=== PATIENT | female | born 1950 | race Caucasian/White ===

== ENCOUNTER → 2016-11-05 | Outpatient (CLI) | payer OTHER, BC | LOC: FIMAGING 15:09 | PROVIDERS: ATTEND Family Medicine | DX: Z12.31 Encounter for screening mammogram for malignant neoplasm of breast (principal); Z80.3 Family history of malignant neoplasm of breast; Z13.820 Encounter for screening for osteoporosis; M85.80 Other specified disorders of bone density and structure, unspecified site | CPT/HCPCS: G0202 ==

== ENCOUNTER → 2016-11-19 | Outpatient (CLI) | payer OTHER, BC | LOC: FIMAGING 14:20 | PROVIDERS: ATTEND Family Medicine | DX: Z12.39 Encounter for other screening for malignant neoplasm of breast (principal); R92.2 Inconclusive mammogram | CPT/HCPCS: 76641; G0206 ==

== ENCOUNTER → 2016-12-08 | Outpatient (CLI) | payer OTHER, BC ==
[~2016-12-08] MED LIST: THROMBIN (BOVINE) 5,000 UNIT VIAL TP ONE
[2016-12-14 14:57] LABS: ACCESSION # HR17-14234; INTERPRETATION See Comments
== END ==
LOC: FIMAGING 08:43
PROVIDERS: ATTEND Family Medicine
PROC: 0HBU3ZX Excision of Left Breast, Percutaneous Approach, Diagnostic (ICD-10-PCS; principal; 2016-12-08)
DX: C50.812 Malignant neoplasm of overlapping sites of left female breast (principal)
CPT/HCPCS: 19083; 88360; 88361; G0206

== ENCOUNTER → 2017-01-04 | Outpatient (CLI) | payer OTHER, BC | LOC: FIMAGING 07:19 | PROVIDERS: ATTEND Surgery | PROC: 3E0W3HZ Introduction of Radioactive Substance into Lymphatics, Percutaneous Approach (ICD-10-PCS; principal; 2017-01-04) | DX: C50.912 Malignant neoplasm of unspecified site of left female breast (principal) | CPT/HCPCS: 19281; 38792; 76098; A9520 ==

== ENCOUNTER 2017-07-22 14:11 | Emergency (ER) | payer OTHER, BC ==
--- NOTE | 2017-07-22 14:37 | EDPHY ---
H & P Time Seen by Provider: 07/22/17 14:28 HPI/ROS: CHIEF COMPLAINT: "My tailbone hurts " HISTORY OF PRESENT ILLNESS: 66-year-old female, no anticoagulant use, history of osteopenia, states that 3 days ago she was walking down carpeted stairs, slipped and landed hard on her buttock. She has been complaining of coccygeal pain ever since. No incontinence or retention. Straddle injury. No urinary abnormality. No melena hematochezia. No radiculopathy. No abdominal pain. No head injury. No Cervical trauma or discomfort. Pain relieved with oxycodone PRIMARY CARE PROVIDER: Dr. Nelida Velázquez REVIEW OF SYSTEMS: A ten point review of systems was performed and is negative with the exception of the items mentioned in the HPI PAST MEDICAL/SURGICAL HISTORY: no anticoagulant use, osteopenia SOCIAL HISTORY: PHYSICAL EXAM 1) GENERAL: Well-developed, well-nourished, alert and oriented. Answering questions appropriately. 2) HEAD: Normocephalic, atraumatic 3) HEENT: Pupils equal, round, reactive to light bilaterally. Negative Horners. Nasopharynx, oropharynx, clear. No deformity or angulation of nose. No septal hematoma. No rhinorrhea. No oral trauma. Ears bilaterally with normal tympanic membranes. No hemotympanum. No fluid or blood in the external auditory canal. No raccoon eyes. No Quiles sign. Teeth are normally aligned with no gross malocclusion, TMJ bilaterally nontender, facial bones nontender including the zygomatic arch, maxilla mandible. 4) NECK: No cervical collar is on. Posterior cervical spine is nontender, no stepoff, no effusion. Full range of motion which does not elicit any midline cervical spine pain, no posterior midline tenderness, no step-off. 5) LUNGS: Clear to auscultation bilaterally, no wheezes, no rhonchi, no retractions. No obvious signs of trauma. No chest wall pain. No flaring, no grunting. Moving symmetrically. No crepitus. 6) HEART: Regular rate and rhythm, 7) ABDOMEN: No guarding, no rebound, no focal tenderness, no peritoneal signs, no signs of trauma, no ecchymosis 8) MUSCULOSKELETAL: tender to palpation bilateral buttock the general location of her pubic rami . Patella Achilles reflexes intact to bilateral strength 5/ 5. Otherwise, Moving all extremities, no focal areas of tenderness, no obvious trauma. Compartments soft 9) BACK: Tender to palpation lower lumbar region midline , no palpable abnormality on pain. No effusion. No step-off. Tender to palpation sacrum midline. No midline vertebral tenderness, no fluctuance, no step-off, no obvious trauma, no visual or palpable abnormality. 10) SKIN: No laceration. No abrasion DIFFERENTIAL DIAGNOSIS:In no particular order, including but not limited to, fracture, sprain/strain, cauda equina, pubic ramus fracture. - Medical/Surgical History Hx Asthma: Yes Hx Chronic Respiratory Disease: No Hx Diabetes: No Hx Cardiac Disease: No Hx Renal Disease: No Hx Cirrhosis: No Hx Alcoholism: No Hx HIV/AIDS: No Hx Splenectomy or Spleen Trauma: No Other PMH: MIGRAINES. auto-immune disorder. sleep apnea - Social History Smoking Status: Never smoked Constitutional: Initial Vital Signs Temperature (C) 36.5 C 07/22/17 14:37 Heart Rate 69 07/22/17 14:37 Respiratory Rate 16 07/22/17 14:37 Blood Pressure 131/68 H 07/22/17 14:37 O2 Sat (%) 93 07/22/17 14:37 O2 Delivery Mode Room Air Allergies/Adverse Reactions: adhesive Allergy (Verified 07/22/17 14:33) adhesive tape Allergy (Verified 07/22/17 14:33) banana Allergy (Verified 04/30/16 11:49) latex Allergy (Verified 04/30/16 11:49) meperidine HCl [From Demerol] Allergy (Verified 04/30/16 11:49) Other-Enter Comments morphine Allergy (Verified 04/30/16 11:49) Anaphylaxis prochlorperazine [From Compazine] Allergy (Verified 07/22/17 14:41) PNEUMONIA VACCINE Allergy (Uncoded 04/30/16 11:49) Other-Enter Comments tape Allergy (Uncoded 07/22/17 14:33) Home Medications: Medication Instructions Recorded Gabapentin 04/30/16 Prozac 10 MG (*) 04/30/16 ALPRAZolam 07/22/17 Acetazolamide 07/22/17 Phenergan 07/22/17 Relpax 07/22/17 Triazolam 07/22/17 Welchol 07/22/17 oxyCODONE/APAP 5/325 [Percocet 1 tab PO Q6 PRN #10 tab 07/22/17 5/325 (*)] traMADol 07/22/17 Medical Decision Making - Diagnostics Imaging Results: Imaging Impressions Lumbar Spine X-Ray 07/22/17 14:34 Impression: 1. No acute osseous abnormality seen about the lumbar spine. 2. Facet hypertrophy lower lumbar spine along with mild disk space narrowing. Pelvis X-Ray 07/22/17 14:34 Impression: 1. Normal pelvis x-ray. 2. Normal sacrum and coccyx series. Sacrum and Coccyx X-Ray 07/22/17 14:34 Impression: 1. Normal pelvis x-ray. 2. Normal sacrum and coccyx series. Images reviewed myself ED Course/Re-evaluation: Care of patient under supervision of primary supervising physician Dr Kaiser . The patient was re-evaluated with serial examinations was recently at 3:19 p.m.. Discussed her imaging results interpreted by staff radiologist as negative for definitive fracture. Doubt compartment syndrome. At this time I do not think that further diagnostic studies are indicated. She has pain relief with oxycodone and requested prescription for similar. Plan will be discharge with oxycodone. Usual and customary orthopedic precautions and instructions provided. She feels comfortable being discharged. - Data Points Medications Given: Discontinued Medications Oxycodone/Acetaminophen (Percocet 5/325) 1 tab PO EDNOW ONE Stop: 07/22/17 14:50 Last Admin: 07/22/17 15:03 Dose: 1 tab Departure - Departure Disposition: Home, Routine, Self-Care Clinical Impression: Coccygeal pain Fall down stairs Qualifiers: Encounter type: initial encounter Qualified Code(s): W10.8XXA - Fall (on) (from ) other stairs and steps, initial encounter Low back pain Qualifiers: Chronicity: acute Back pain laterality: midline Sciatica presence: without sciatica Qualified Code(s): M54.5 - Low back pain Condition: Good Instructions: Acute Low Back Pain (ED) Additional Instructions: Seek medical attention if you develop new or worsening pain, if you develop bladder or bowel dysfunction, numbness around your perineum, foot drop, or any other symptoms that concern you. Referrals: Shyann Velázquez MD [Primary Care Provider] - 07/25/17 Prescriptions: oxyCODONE/APAP 325 [Percocet 325 (*)] 1 tab PO Q6 PRN #10 tab PRN Reason: Pain, Severe
[2017-07-22] MEDS ORDERED: OXYCODONE/APAP 5/325 TAB PO ONE (14:49)
[2017-07-22 15:45] VITALS: BP 132/68; PULSE 68; RESP 20; TEMP 98.1; O2SAT 94
== END 2017-07-22 15:47 | disposition home or self-care (01) ==
DX: S39.92XA Unspecified injury of lower back, initial encounter (principal); J45.909 Unspecified asthma, uncomplicated; Z91.040 Latex allergy status; W10.8XXA Fall (on) (from) other stairs and steps, initial encounter; Y93.01 Activity, walking, marching and hiking

== ENCOUNTER 2017-08-05 11:37 | Day surgery (SDC) | payer OTHER, BC ==
[~2017-08-05 11:37] MED LIST changes: +ALBUTEROL 3 ML DEYVIAL ONE; +LIDOCAINE 1% 300 MG/30 ML SDV ONE; +LIDOCAINE 2% JELLY 5 ML TUBE ONE; -THROMBIN (BOVINE) 5,000 UNIT VIAL TP ONE
[2017-08-05 12:11] VITALS: PULSE 64; TEMP 97.9
--- NOTE | 2017-08-05 12:59 | PDPROPOC ---
Sedation Plan of Care Sedation Plan of Care: vital signs stable, mental status noted, patient educated of risks, benefits, alternatives, patient can tolerate sedation ASA Classification: ASA 2 Planned drugs: fentanyl, midazolam Mallampati Score: Class 2 Mallampati Reference Image: Patient passed 3-3-2 rule?: Yes
[2017-08-05] MEDS ORDERED: fentaNYL 100 MCG/2 ML INJ ONE (13:04)
[2017-08-05] MEDS ORDERED: MIDAZOLAM 2 MG/2 ML VIAL ONE (13:04)
--- NOTE | 2017-08-05 13:20 | POSTOPPROG ---
Post Op Note Date of Operation: 08/05/17 Surgeon: Darien Pérez Anesthesia: IV Sedation Pre-op Diagnosis: cough Post-op Diagnosis: cough Procedure: bronchoscopy Findings: normal airways Inf/Abcess present in the surg proc area at time of surgery?: No
[2017-08-05] MEDS ORDERED: fentaNYL 100 MCG/2 ML INJ IVP ONE (13:21)
[2017-08-05] MEDS ORDERED: MIDAZOLAM 2 MG/2 ML VIAL IVP ONE (13:21)
--- NOTE | 2017-08-05 13:27 | BVPULMO ---
Formerly [facility] Surgical Services- Pulmonology Patient Name: Corinne Johnson Procedure Date: 08/05/2017 10:38 AM Patient Type: Outpatient Attending MD/ER Physician: Darien Pérez MD Procedure: Bronchoscopy Indications: Chronic cough Providers: Darien Pérez MD Medicines: Fentanyl 75 mcg IV, Midazolam 3 mg mg IV, Lidocaine 1% applied to cords 2 mL, Lidocaine 1% subglottic space 3 mL, Oxygen 6 L/min Complications: No immediate complications Procedure: After informed consent, a time out was performed. N95 masks were worn, and the procedure was done in a negative pressure room. The patient was given appropria te topical anesthesia and intravenous sedation. The fiberopic bronchoscope was pas sed via a bite block orally into the larynx and subsequently into the lower trachea bronchial tree. Throughout the procedure, the patient's blood pressure, pulse, and oxygen saturations were monitored continuously. The Bronchoscope (Video) was introduced through the mouth and advanced to the tracheobronchial tree of both lungs. The procedure was accomplished without difficulty. The patient tolerated the procedure well. The total duration of the procedure was 25 minutes. Findings: The oropharynx appears normal. The larynx appears normal. The vocal cords appea r normal. The subglottic space is normal. The trachea is of normal caliber. The c connie is sharp. The tracheobronchial tree was examined to at least the first subsegme ntal level. Bronchial mucosa and anatomy are normal; there are no endobronchial lesi ons, and no secretions. Post Op Diagnosis: - Chronic cough - The examination was normal. - No specimens collected. - The examination was normal. Estimated Blood Loss: Estimated blood loss: none. Recommendation: - Follow up with bronchoscopist in 1 month. Attending Participation: I personally performed the entire procedure. Darien Pérez MD Darien Pérez MD 08/05/2017 1:26:36 PM This report has been signed electronicallyThomas MD Beto Number of Addenda: 0 Note Initiated On: 08/05/2017 10:38 AM [email or web address]
[2017-08-05 14:15] VITALS: BP 118/74; RESP 29; O2SAT 93
== END 2017-08-05 14:15 | disposition home or self-care (01) ==
LOC: FSGY 11:37
PROVIDERS: ATTEND Internal Medicine Pulmonary Disease
PROC: 0BJ08ZZ Inspection of Tracheobronchial Tree, Via Natural or Artificial Opening Endoscopic (ICD-10-PCS; principal; 2017-08-05 13:00)
DX: R05 Cough (principal)
CPT/HCPCS: J0171; J2250; J3010

== ENCOUNTER → 2017-11-07 | Outpatient (CLI) | payer OTHER, BC | LOC: FIMAGING 07:56 | PROVIDERS: ATTEND Radiology Radiation Oncology | DX: Z12.31 Encounter for screening mammogram for malignant neoplasm of breast (principal); Z85.3 Personal history of malignant neoplasm of breast ==

== ENCOUNTER → 2017-11-23 | Outpatient (CLI) | payer OTHER, BC | LOC: FIMAGING 14:05 | PROVIDERS: ATTEND Internal Medicine Hematology & Oncology | DX: Z13.820 Encounter for screening for osteoporosis (principal); M85.89 Other specified disorders of bone density and structure, multiple sites; Z85.3 Personal history of malignant neoplasm of breast; Z78.0 Asymptomatic menopausal state ==

== ENCOUNTER → 2017-12-08 | Outpatient (CLI) | payer OTHER, BC | LOC: FIMAGING 12:17 | PROVIDERS: ATTEND Physician Assistant Surgical | DX: R93.8 Abnormal findings on diagnostic imaging of other specified body structures (principal); R10.2 Pelvic and perineal pain; R10.32 Left lower quadrant pain ==

== ENCOUNTER → 2018-06-06 | Outpatient (CLI) | payer OTHER, BC | LOC: FIMAGING 12:53 | PROVIDERS: ATTEND Physician Assistant Surgical | DX: R10.2 Pelvic and perineal pain (principal) | CPT/HCPCS: 82306-90 ==

== ENCOUNTER 2018-08-22 12:36 | Emergency (ER) | payer OTHER, BC ==
[2018-08-22 13:26] LABS: PLATELET COUNT 227 10^3/uL (150-400)
[2018-08-22] MEDS ORDERED: NS 1,000 ML IV ONE (13:32)
--- NOTE | 2018-08-22 13:40 | EDPHY ---
H & P Time Seen by Provider: 08/22/18 13:13 HPI/ROS: CHIEF COMPLAINT: Loss of vision, facial numbness, headache HISTORY OF PRESENT ILLNESS: This is a 67-year-old female with a history of fibromyalgia, migraine headaches, irritable bowel syndrome, and depression who presents after an episode of "loss of vision". Patient relates that she was laying on the couch this morning, she went to sit up and her visual field in both eyes suddenly went black. She states it felt like a curtain that came down. Lasted for only a few seconds and then the patient laid back down. She denies a feeling of tunnel vision, palpitations, lightheadedness, or dizziness. After a few moments she sat up again and once again lost the vision in both visual butler. She denies flashes of lights. She then developed a severe left retro-orbital headache. Patient laid back down again and waited for about 20 min. Her headache started to reside on its own and then she developed some numbness around the left eye and onto the left cheek. At no point did she actually have a syncopal episode. No chest pain. No shortness of breath. No recent nausea, vomiting, or diarrhea. No speech difficulties. No numbness or tingling present currently. No weakness. Patient has been otherwise well. REVIEW OF SYSTEMS: A comprehensive 10 system review of systems was reviewed and is otherwise negative aside from elements mentioned in the history of present illness and medical decision making. Patient does relate an issue with her Cymbalta dose where she inadvertently increased Cymbalta from 60 mg daily 220 mg daily. She was quite sedated over the weekend but the medication error was recognize yesterday and the patient reports back to her normal mentation today. PAST MEDICAL HISTORY: Fibromyalgia, irritable bowel, migraine headaches. No history of hypertension, diabetes, TIA, or stroke. SOCIAL HISTORY: Here with her . VITAL SIGNS Reviewed by me. GENERAL: Well-developed, well-nourished, resting comfortably in no respiratory distress. HEENT: Atraumatic. Eyes: No icterus, no injection. FLORINDA, EOMI. Discs are sharp bilaterally. Mouth: moist mucous membranes. No erythema or lesions. Neck: supple with no adenopathy. No meningismus. LUNGS: Clear to auscultation bilaterally, no wheezes, rhonchi or rales. CARDIAC: Regular rate and rhythm, no rubs, murmurs or gallops. ABDOMEN: Soft, nontender, nondistended, bowel sounds normal. BACK: No CVA tenderness. EXTREMITIES: No trauma. No edema. Range of motion is normal throughout. NEURO: Alert and oriented, cranial nerves 2-12 are intact. Motor strength 5/5 throughout. Sensation intact to light touch throughout including on the face. SKIN: Warm and dry, no rash. PSYCHIATRIC: Normal mentation, no agitation. Smoking Status: Never smoked Constitutional: Initial Vital Signs Temperature (C) 36.6 C 08/22/18 12:42 Heart Rate 67 08/22/18 12:42 Respiratory Rate 18 08/22/18 12:42 O2 Sat (%) 95 08/22/18 12:42 O2 Delivery Mode Room Air Allergies/Adverse Reactions: adhesive Allergy (Verified 08/22/18 12:44) adhesive tape Allergy (Verified 08/22/18 12:44) banana Allergy (Verified 08/22/18 12:44) latex Allergy (Verified 08/22/18 12:44) meperidine HCl [From Demerol] Allergy (Verified 08/22/18 12:44) Other-Enter Comments morphine Allergy (Verified 08/22/18 12:44) Anaphylaxis prochlorperazine [From Compazine] Allergy (Verified 08/22/18 12:44) Other-Enter Comments PNEUMONIA VACCINE Allergy (Uncoded 08/22/18 12:44) Other-Enter Comments tape Allergy (Uncoded 08/22/18 12:44) Home Medications: Medication Instructions Recorded Gabapentin 04/30/16 Prozac 10 MG (*) 04/30/16 Welchol 07/22/17 oxyCODONE/APAP 5/325 [Percocet 1 tab PO Q6 PRN #10 tab 07/22/17 5/325 (*)] Aleve 08/03/17 Halcion 0.25MG (*) 08/03/17 IMODIUM A-D 08/03/17 Pepto-Bismol 08/03/17 Medical Decision Making - Diagnostics EKG Interpretation: 12-LEAD EKG: Please see the full report in [facility]. My interpretation: Sinus rhythm Imaging Results: Imaging Impressions Brain MRI 08/22/18 13:32 Impression: Normal MRI of the brain without contrast. Findings and recommendations discussed with Emergency Department physician, Lynsey Bonilla MD at 15:04 hour, 08/22/2018. Final report concurs with initial preliminary interpretation. Imaging: Discussed imaging studies w/ call center recruiter Radiologist ED Course/Re-evaluation: 67-year-old female presenting with constellation of symptoms including sudden loss of vision in both eyes, headache, and facial numbness. The symptoms have resolved. Differential includes migraine headache versus TIA. Patient also reports some orthostatics symptoms. EKG is normal. CBC is normal. Electrolytes: Normal. MRI of the brain: No acute findings. Patient is feeling better. She will be discharged home. Differential Diagnosis: After history was obtained, and the physical exam performed, a differential for headache, vision loss, and facial tingling was considered including, but not limited to, migraine headache, TIA, dehydration, intracranial hemorrhage, CVA. - Data Points Laboratory Results: Laboratory Results 08/22/18 13:05 08/22/18 13:05 08/22/18 08/22/18 08/22/18 13:20 13:05 13:05 WBC 5.90 10^3/uL 10^3/uL (3.80-9.50) RBC 4.15 10^6/uL L 10^6/uL (4.18-5.33) Hgb 14.1 g/dL g/dL (12.6-16.3) Hct 40.9 % % (38.0-47.0) MCV 98.6 fL fL (81.5-99.8) MCH 34.0 pg pg (27.9-34.1) MCHC 34.5 g/dL g/dL (32.4-36.7) RDW 12.4 % % (11.5-15.2) Plt Count 227 10^3/uL 10^3/uL (150-400) MPV 8.6 fL L fL (8.7-11.7) Neut % (Auto) 64.8 % % (39.3-74.2) Lymph % (Auto) 19.2 % % (15.0-45.0) Peach % (Auto) 7.3 % % (4.5-13.0) Eos % (Auto) 8.1 % H % (0.6-7.6) Baso % (Auto) 0.3 % % (0.3-1.7) Nucleat RBC Rel Count 0.0 % % (0.0-0.2) Absolute Neuts (auto) 3.82 10^3/uL 10^3/uL (1.70-6.50) Absolute Lymphs (auto) 1.13 10^3/uL 10^3/uL (1.00-3.00) Absolute Monos (auto) 0.43 10^3/uL 10^3/uL (0.30-0.80) Absolute Eos (auto) 0.48 10^3/uL H 10^3/uL (0.03-0.40) Absolute Basos (auto) 0.02 10^3/uL 10^3/uL (0.02-0.10) Absolute Nucleated RBC 0.00 10^3/uL 10^3/uL (0-0.01) Immature Gran % 0.3 % % (0.0-1.1) Immature Gran # 0.02 10^3/uL 10^3/uL (0.00-0.10) Sodium 140 mEq/L mEq/L (135-145) Potassium 4.4 mEq/L mEq/L (3.5-5.2) Chloride 111 mEq/L H mEq/L (97-110) Carbon Dioxide 21 mEq/l L mEq/l (22-31) Anion Gap 8 mEq/L mEq/L (6-14) BUN 15 mg/dL mg/dL (7-23) Creatinine 0.7 mg/dL mg/dL (0.6-1.0) Estimated GFR > 60 Glucose 105 mg/dL H mg/dL (70-100) Calcium 8.8 mg/dL mg/dL (8.5-10.4) POC Troponin I 0.00 ng/mL ng/mL (0.00-0.08) Medications Given: Discontinued Medications Sodium Chloride (Ns) 1,000 mls @ 0 mls/hr IV ONCE ONE; Wide Open PRN Reason: Protocol Stop: 08/22/18 13:33 Last Admin: 08/22/18 13:44 Dose: 1,000 mls Lorazepam (Ativan Injection) 1 mg IVP EDNOW ONE Stop: 08/22/18 14:19 Last Admin: 08/22/18 14:19 Dose: 1 mg Point of Care Test Results: Chemistry 08/22/18 13:20 POC Troponin I 0.00 ng/mL ng/mL (0.00-0.08) Departure - Departure Disposition: Home, Routine, Self-Care Clinical Impression: Paresthesia Headache Qualifiers: Headache type: unspecified Headache chronicity pattern: acute headache Intractability: not intractable Qualified Code(s): R51 - Headache Condition: Fair Instructions: Migraine Headache (ED), Acute Headache (ED) Additional Instructions: Please follow up with her primary care physician if her symptoms recur. Please be seen urgently if you develop any numbness or tingling in her arms or legs, weakness, recurrent visual complaints, or other concerns. Please stay well-hydrated. Referrals: Shyann Velázquez MD [Primary Care Provider] - As per Instructions
[2018-08-22] MEDS ORDERED: LORazepam 2 MG/ML INJ IVP ONE (14:18)
[2018-08-22] MEDS ORDERED: LORazepam 2 MG/ML INJ ONE (14:18)
--- NOTE | 2018-08-22 15:17 | CPEKG ---
Test Reason : OPEN Blood Pressure : / mmHG Vent. Rate : 063 BPM Atrial Rate : 063 BPM P-R Int : 150 ms QRS Dur : 088 ms QT Int : 445 ms P-R-T Axes : 050 -13 033 degrees QTc Int : 456 ms Sinus rhythm Confirmed by Omar Barboza ([id number]) on 08/22/2018 3:17:04 PM Referred By: Confirmed By:Omar Barboza
[2018-08-22 15:42] VITALS: BP 116/75
== END 2018-08-22 15:39 | disposition home or self-care (01) ==
DX: H54.7 Unspecified visual loss (principal); R20.0 Anesthesia of skin; R51 Headache; E86.9 Volume depletion, unspecified; I10 Essential (primary) hypertension; E11.9 Type 2 diabetes mellitus without complications
CPT/HCPCS: 70551; 93005; 96361; 96374; 99285; J2060; 84484-PO

== ENCOUNTER → 2018-12-12 | Outpatient (CLI) | payer OTHER, BC | LOC: FIMAGING 08:10 | PROVIDERS: ATTEND Internal Medicine Gastroenterology | DX: K44.9 Diaphragmatic hernia without obstruction or gangrene (principal); K21.9 Gastro-esophageal reflux disease without esophagitis ==

== ENCOUNTER → 2018-12-25 | Outpatient (CLI) | payer OTHER, BC | LOC: FIMAGING 09:39 | PROVIDERS: ATTEND Surgery | DX: N63.20 Unspecified lump in the left breast, unspecified quadrant (principal); C50.912 Malignant neoplasm of unspecified site of left female breast; Z92.3 Personal history of irradiation ==